=== PATIENT | female | born 1965 | race Caucasian/White ===

== ENCOUNTER 2017-08-13 12:51 | Emergency (ER) | payer BC ==
[~2017-08-13] VITALS: Ht 154.9 cm; Wt 71.0 kg
[2017-08-13 12:53] VITALS: Ht 154.9 cm; Wt 71.0 kg
[2017-08-13] MEDS ORDERED: MoRPHine SULFATE 10 MG/ML CARP/VIAL IV STA (13:01)
[2017-08-13] MEDS ORDERED: SODIUM CHLORIDE 0.9% 1000ML 1,000 ML IV STA ×2 (13:01)
[2017-08-13] MEDS ORDERED: ONDANSETRON INJ 2 MG/ML 2 ML VIAL IV STA ×2 (13:01→17:26)
[2017-08-13] MEDS ORDERED: OPTIRAY 320 IV PRN (13:15)
[2017-08-13] MEDS ORDERED: MIRT15TA3 PO (13:42)
[2017-08-13 13:43] LABS: BASO % 0.2 %; BASO ABS # 0.02 K/uL (0-0.2); COMPLETE YES; EOS % 0.6 %; HEMATOCRIT 44.1 % (37-47); IG% 0.4 %; LYMPH ABS # 0.51 K/uL (1.2-3.4); MEAN CELL VOLUME 89.3 fL (80-100); MEAN CORPUSCULAR HEMOGLOBIN 30.8 pg (25-34); MEAN CORPUSCULAR HGB CONC 34.5 g/dl (32-36); MEAN PLATELET VOLUME 10.7 fL (7.4-10.4); MONO % 5.7 %; NEUT % 87.1 %; PLATELET COUNT 186 K/uL (130-400); RED BLOOD COUNT 4.94 M/uL (4.2-5.4); WHITE BLOOD COUNT 8.44 K/uL (4.8-10.8)
[2017-08-13 14:15] LABS: BUN/CREATININE RATIO 11.2 (10-20); CALCIUM 9.2 mg/dl (8.5-10.1); CREATININE 0.78 mg/dl (0.60-1.20)
[2017-08-13 14:17] LABS: URINE APPEARANCE CLEAR (CLEAR); URINE BILIRUBIN NEG (NEG); URINE COLOR YELLOW; URINE EPITHELIAL CELL AUTO >30 /lpf (0-5); URINE NITRITE NEG (NEG); URINE SPECIFIC GRAVITY 1.015 (1.000-1.030); UROBILINOGEN NEG (NEG); ZZUR CULT IF INDIC CLEAN CATCH YES
[2017-08-13 14:18] LABS: PREG INTERNAL NEGATIVE QC NEG CLEAR BACKGROUND; PREG INTERNAL POSITIVE QC POS CONTROL LINE
[2017-08-13 14:20] LABS: POTASSIUM 4.4 mmol/L (3.5-5.1)
[2017-08-13 14:23] LABS: MANUAL MICROSCOPIC REQUIRED? NO; REVIEW REQ? NO
--- NOTE | 2017-08-13 14:35 | DIAGNOSTIC IMAGING REPORT ---
CHEST 2 VIEWS ROUTINE CLINICAL HISTORY: 51 years-old Female presenting with cough. TECHNIQUE: PA and lateral views of the chest were obtained. COMPARISON: None. FINDINGS: Cardiomediastinal silhouette normal. Lungs and pleural spaces clear. Osseous structures normal. Upper abdomen normal. IMPRESSION: 1. No acute cardiopulmonary disease. Electronically signed by: Isaias Cramer M.D. 08/13/2017 2:33 PM Dictated Date/Time: 08/13/2017 2:33 PM
--- NOTE | 2017-08-13 15:40 | DIAGNOSTIC IMAGING REPORT ---
ABD/PELVIS IV CONTRAST ONLY CLINICAL HISTORY: 51 years-old Female presenting with abd pain w/. vomiting, fever, lower abdominal pain. TECHNIQUE: Multidetector CT of the abdomen and pelvis was performed after the administration of intravenous contrast. IV contrast: 116 mL of Optiray 320. A dose lowering technique was used consistent with the principles of ALARA (as low as reasonably achievable). COMPARISON: None. CT DOSE (mGy.cm): The estimated cumulative dose is 400.89 mGy.cm. FINDINGS: Scratch Finisher topogram: Unremarkable. Lung bases: Minimal dependent changes likely atelectasis. Normal heart size. No pericardial or pleural effusion. Liver: Congenital hypoplasia of the medial segments of the left hepatic lobe. No focal lesion. Patent hepatic vasculature. Biliary: Minimal intrahepatic biliary ductal dilatation diffusely. No extra hepatic ductal dilatation. Normal gallbladder. Pancreas: Evidence of pancreas divisum. Parenchyma normal. Spleen: Normal. Splenule noted. Adrenal glands: Normal. Kidneys and ureters: Normal. No hydronephrosis. Bladder: Normal. Pelvic organs: Heterogeneity of the anterior lower uterine segment may suggest prior section. Endometrium is prominent for the patient's age. Multiple ovarian follicles or cysts are noted, the largest in the left ovary, which measures 2.4 cm in diameter and may be complex. Bowel: Normal appendix. No bowel obstruction. Peritoneal cavity: No free fluid or intraperitoneal gas. Lymph nodes: No enlarged lymph nodes in the abdomen or pelvis. Vasculature: Aorta and IVC patent and normal in caliber. Abdominal wall: Small fat-containing umbilical hernia. Musculoskeletal: Normal. IMPRESSION: 1. No acute intra-abdominal pathology. 2. Prominent follicles in the ovaries most pronounced in the left ovary. The largest follicle in the left ovary may be somewhat complex. The presence of such prominent follicles would be unexpected in the postmenopausal setting. Correlate clinically with consideration for pelvic ultrasound if the patient is postmenopausal for further evaluation. 3. Additionally, the endometrium is more prominent than expected the patient is postmenopausal. Again, pelvic ultrasound could better assess this. 4. Pancreas divisum. Electronically signed by: Isaias Cramer M.D. 08/13/2017 3:39 PM Dictated Date/Time: 08/13/2017 3:32 PM
--- NOTE | 2017-08-13 16:13 | EMERGENCY ROOM VISIT NOTE ---
History Report prepared by [place]: Tony López Under the Supervision of: Surya TorresO. First contact with patient: 12:55 Chief Complaint: ILLNESS Stated Complaint: FEVER, VOMITING, DIZZY, COUGH History of Present Illness The patient is a 51 year old female who presents to the Emergency Room with complaints of vomiting that began this morning. She had a productive cough which has been present for the past 24 hours as well. Endorses a fever of 101 F at 1000 this morning. Denies abdominal pain, diarrhea, dysuria, and changes in vision. Endorses dizziness, lightheadedness, and generalized cramping of the abdomen associated with nausea and vomiting. Of note, the patient has a surgical history of a caesarian section. The patient has an allergy to Sulfa drugs. Both her sons have been sick with similar symptoms of upper respiratory infection. They did not have any diarrhea or vomiting. No recent antibiotic use. Source of History: patient Onset: 1000 this morning Position: head, other (general) Timing: constant Associated Symptoms: + fevers (101 F), + cough (productive), + nausea, + vomiting, No abdominal pain, No diarrhea, No urinary symptoms Note: Additional Symptoms: Denies changes in vision Endorses dizziness, lightheadedness, and generalized cramping Review of Systems See HPI for pertinent positives & negatives. A total of 10 systems reviewed and were otherwise negative. Past Medical & Surgical Medical Problems: (1) Hypertension Surgical Problems: (1) S/P Family History FH: cancer Hypertension Social History Smoking Status: Never Smoker Marital Status: Housing Status: lives with family Occupation Status: other Current/Historical Medications Scheduled Levofloxacin (Levaquin), 500 MG PO DAILY Mirtazapine (Remeron), 7.5 MG PO HS Scheduled PRN Ondansetron Hcl (Zofran), 1 TAB PO Q4H PRN for Nausea Allergies Coded Allergies: Sulfa Drugs (Verified Allergy, Intermediate, LIPS SWELL, 08/13/17) Physical Exam Vital Signs Date Time Temp Pulse Resp B/P (MAP) Pulse Ox O2 Delivery O2 Flow Rate FiO2 08/13/17 18:07 110 18 142/83 97 Room Air 08/13/17 17:32 37.6 110 18 142/77 98 Room Air 08/13/17 14:46 117 18 160/90 95 Room Air 08/13/17 12:53 37.9 136 18 146/87 98 Physical Exam GENERAL: Sitting up in bed, alert, disheveled, slightly ill appearing, well nourished, no distress, non-toxic EYE EXAM: normal conjunctiva. OROPHARYNX: no exudate, no erythema, lips, buccal mucosa, and tongue normal and mucous membranes are moist NECK: supple, no nuchal rigidity, no adenopathy, non-tender, negative Brudzinski LUNGS: Clear to auscultation. Normal chest wall mechanics HEART: no murmurs, S1 normal and S2 normal, tachycardia ABDOMEN: abdomen soft, non-tender, normo-active bowel sounds, no masses, no rebound or guarding. BACK: Back is symmetrical on inspection and there is no deformity, no midline tenderness, no CVA tenderness. SKIN: no rashes and no bruising UPPER EXTREMITIES: upper extremities are grossly normal. LOWER EXTREMITIES: No pitting edema. NEURO EXAM: Normal sensorium, cranial nerves II-XII grossly intact, normal speech, no gross weakness of arms, no gross weakness of legs. Gross sensation intact. Medical Decision & Procedures ER Provider Diagnostic Interpretation: Radiology results as stated below per my review and the radiologist's interpretation: ABD/PELVIS IV CONTRAST ONLY CLINICAL HISTORY: 51 years-old Female presenting with abd pain w/. vomiting, fever, lower abdominal pain. TECHNIQUE: Multidetector CT of the abdomen and pelvis was performed after the administration of intravenous contrast. IV contrast: 116 mL of Optiray 320. A dose lowering technique was used consistent with the principles of ALARA (as low as reasonably achievable). COMPARISON: None. CT DOSE (mGy.cm): The estimated cumulative dose is 400.89 mGy.cm. FINDINGS: Production Tool Engineer topogram: Unremarkable. Lung bases: Minimal dependent changes likely atelectasis. Normal heart size. No pericardial or pleural effusion. Liver: Congenital hypoplasia of the medial segments of the left hepatic lobe. No focal lesion. Patent hepatic vasculature. Biliary: Minimal intrahepatic biliary ductal dilatation diffusely. No extra hepatic ductal dilatation. Normal gallbladder. Pancreas: Evidence of pancreas divisum. Parenchyma normal. Spleen: Normal. Splenule noted. Adrenal glands: Normal. Kidneys and ureters: Normal. No hydronephrosis. Bladder: Normal. Pelvic organs: Heterogeneity of the anterior lower uterine segment may suggest prior section. Endometrium is prominent for the patient's age. Multiple ovarian follicles or cysts are noted, the largest in the left ovary, which measures 2.4 cm in diameter and may be complex. Bowel: Normal appendix. No bowel obstruction. Peritoneal cavity: No free fluid or intraperitoneal gas. Lymph nodes: No enlarged lymph nodes in the abdomen or pelvis. Vasculature: Aorta and IVC patent and normal in caliber. Abdominal wall: Small fat-containing umbilical hernia. Musculoskeletal: Normal. IMPRESSION: 1. No acute intra-abdominal pathology. 2. Prominent follicles in the ovaries most pronounced in the left ovary. The largest follicle in the left ovary may be somewhat complex. The presence of such prominent follicles would be unexpected in the postmenopausal setting. Correlate clinically with consideration for pelvic ultrasound if the patient is postmenopausal for further evaluation. 3. Additionally, the endometrium is more prominent than expected the patient is postmenopausal. Again, pelvic ultrasound could better assess this. 4. Pancreas divisum. Electronically signed by: Isaias Cramer M.D. 08/13/2017 3:39 PM CHEST 2 VIEWS ROUTINE CLINICAL HISTORY: 51 years-old Female presenting with cough. TECHNIQUE: PA and lateral views of the chest were obtained. COMPARISON: None. FINDINGS: Cardiomediastinal silhouette normal. Lungs and pleural spaces clear. Osseous structures normal. Upper abdomen normal. IMPRESSION: 1. No acute cardiopulmonary disease. Electronically signed by: Isaias Cramer M.D. 08/13/2017 2:33 PM Laboratory Results 08/13/17 13:30 Red Blood Count 4.94, Mean Corpuscular Volume 89.3, Mean Corpuscular Hemoglobin 30.8, Mean Corpuscular Hemoglobin Concent 34.5, Mean Platelet Volume 10.7, Neutrophils (%) (Auto) 87.1, Lymphocytes (%) (Auto) 6.0, Monocytes (%) (Auto) 5.7, Eosinophils (%) (Auto) 0.6, Basophils (%) (Auto) 0.2, Neutrophils # (Auto) 7.35, Lymphocytes # (Auto) 0.51, Monocytes # (Auto) 0.48, Eosinophils # (Auto) 0.05, Basophils # (Auto) 0.02 08/13/17 13:30 Test 08/13/17 13:30 08/13/17 13:43 08/13/17 14:00 White Blood Count 8.44 K/uL (4.8-10.8) Red Blood Count 4.94 M/uL (4.2-5.4) Hemoglobin 15.2 g/dL (12.0-16.0) Hematocrit 44.1 % (37-47) Mean Corpuscular Volume 89.3 fL (80-100) Mean Corpuscular Hemoglobin 30.8 pg (25-34) Mean Corpuscular Hemoglobin Concent 34.5 g/dl (32-36) Platelet Count 186 K/uL (130-400) Mean Platelet Volume 10.7 fL (7.4-10.4) Neutrophils (%) (Auto) 87.1 % Lymphocytes (%) (Auto) 6.0 % Monocytes (%) (Auto) 5.7 % Eosinophils (%) (Auto) 0.6 % Basophils (%) (Auto) 0.2 % Neutrophils # (Auto) 7.35 K/uL (1.4-6.5) Lymphocytes # (Auto) 0.51 K/uL (1.2-3.4) Monocytes # (Auto) 0.48 K/uL (0.11-0.59) Eosinophils # (Auto) 0.05 K/uL (0-0.5) Basophils # (Auto) 0.02 K/uL (0-0.2) RDW Standard Deviation 45.0 fL (36.4-46.3) RDW Coefficient of Variation 13.7 % (11.5-14.5) Immature Granulocyte % (Auto) 0.4 % Immature Granulocyte # (Auto) 0.03 K/uL (0.00-0.02) Anion Gap 9.0 mmol/L (3-11) Est Creatinine Clear Calc Drug Dose 77.7 ml/min Estimated GFR () 102.7 Estimated GFR (Non- 88.6 BUN/Creatinine Ratio 11.2 (10-20) Calcium Level 9.2 mg/dl (8.5-10.1) Total Bilirubin 1.0 mg/dl (0.2-1) Direct Bilirubin mg/dl (0-0.2) Aspartate Amino Transf (AST/SGOT) 25 U/L (15-37) Alanine Aminotransferase (ALT/SGPT) 36 U/L (12-78) Alkaline Phosphatase 131 U/L (45-117) Total Protein 7.6 gm/dl (6.4-8.2) Albumin 3.8 gm/dl (3.4-5.0) Lipase 133 U/L (73-393) Chemistry Specimen Hemolysis Influenza Type A Antigen Neg for Influ A (NEG) Influenza Type B Antigen Neg for Influ B (NEG) Urine Color YELLOW Urine Appearance CLEAR (CLEAR) Urine pH 8.0 (4.5-7.5) Urine Specific [place] 1.015 (1.000-1.030) Urine Protein NEG (NEG) Urine Glucose (UA) NEG (NEG) Urine Ketones 2+ (NEG) Urine Occult Blood 2+ (NEG) Urine Nitrite NEG (NEG) Urine Bilirubin NEG (NEG) Urine Urobilinogen NEG (NEG) Urine Leukocyte Esterase NEG (NEG) Urine WBC (Auto) 1-5 /hpf (0-5) Urine RBC (Auto) 10-30 /hpf (0-4) Urine Hyaline Casts (Auto) 1-5 /lpf (0-5) Urine Epithelial Cells (Auto) >30 /lpf (0-5) Urine Bacteria (Auto) 1+ (NEG) Urine Test NEG (NEG) Laboratory results per my review. Medications Administered Medications (Trade) Dose Ordered Sig/Gael Route Start Time Stop Time Status Last Admin Dose Admin Sodium Chloride 1,000 ml @ 999 mls/hr Q1H1M STAT IV 08/13/17 13:01 08/13/17 14:01 [place] 08/13/17 13:30 999 MLS/HR Ondansetron HCl (Zofran Inj) 4 mg NOW STAT IV 08/13/17 13:01 08/13/17 13:06 DC 08/13/17 13:37 4 MG Morphine Sulfate (MoRPHine SULFATE INJ) 6 mg NOW STAT IV 08/13/17 13:01 08/13/17 13:06 DC 08/13/17 13:37 6 MG Sodium Chloride 1,000 ml @ 999 mls/hr Q1H1M STAT IV 08/13/17 13:01 08/13/17 14:01 [place] 08/13/17 13:30 999 MLS/HR Ondansetron HCl (Zofran Inj) 4 mg NOW STAT IV 08/13/17 17:26 08/13/17 17:27 DC 08/13/17 17:37 4 MG Sodium Chloride 500 ml @ 999 mls/hr Q31M STAT IV 08/13/17 17:27 08/13/17 17:57 DC 08/13/17 17:39 999 MLS/HR Levofloxacin (Levaquin Tab) 750 mg NOW ONCE PO 08/13/17 18:00 08/13/17 18:01 DC 08/13/17 18:05 750 MG ED Course ED COURSE: Vital signs were reviewed and showed tachycardia and febrile. The patients medical record was reviewed The above diagnostic studies were performed and reviewed. ED treatments and interventions as stated above. 1255: The patient was evaluated in room B10. A complete history and physical examination was performed. 1558: I spoke with the patient and she would like something to drink. 1648: I updated the patient and she was adamant about getting a private room. Upon reevaluation, the patient is feeling better. I discussed my findings with the patient and she understands and agrees with the treatment plan. Based on the patients age, coexisting illnesses, exam and lab findings the decision to treat as an outpatient was made. The patient remained stable while under my care. The patient appeared well at the time of discharge. Medical Decision Differential diagnosis includes etiologies such as sepsis, UTI, pneumonia, metabolic, electrolyte abnormalities, cardiac sources, intracerebral event, toxicologic, neurologic, as well as others were entertained. Patient is a 51-year-old female who presents to ER for cough associated with fevers, vomiting and diarrhea. Patient's abdominal exam is fairly benign but she does complain of pain. Family has been sick with similar symptoms. Vitals are remarkable for a tachycardia and fever. CBC all BMP, LFTs, bilirubin and lipase is unremarkable. UA was contaminated with multiple epithelial cells. was negative. Patient still gets her menstrual. But has not had any for the past [address] of abdomen and pelvis was benign with the exception of a left ovarian mass. Ultrasound was performed and shows a cyst. Patient was updated to have this followed up on within 2 months. Chest x-ray shows no infiltrate. No obvious source of infection with the exception of the obvious bronchitis and likely viral gastroenteritis. Patient was placed on Levaquin due to the viral URI and discharged with Zofran. Patient is tolerating oral liquids prior to discharge. She was feeling significantly better. I offered admission due to the mild tachycardia in combination with the nausea and vomiting. Patient declined and preferred to go home. I felt this is reasonable. Discussed with Pt concerning signs and symptoms to watch out for. Pt was instructed to follow up with their PCP and discussed with the patient their option to return to the ED at anytime for persistent or worsening symptoms. The appropriate anticipatory guidance and out-patient management, including indications for return to the emergency department, were explained at length to the patient and understood. Medication Reconcilliation Current Medication List: was personally reviewed by me Blood Pressure Screening Patient's blood pressure: Normal blood pressure Blood pressure disposition: Did not require urgent referral Impression Primary Impression: Nausea vomiting and diarrhea Additional Impressions: Abdominal pain Bronchitis Ovarian cyst Scribe Attestation The scribe's documentation has been prepared under my direction and personally reviewed by me in its entirety. I confirm that the note above accurately reflects all work, treatment, procedures, and medical decision making performed by me. Departure Information Prescriptions Ondansetron Hcl (ZOFRAN) 4 Mg Tab 1 TAB PO Q4H Y for Nausea for 3 Days, #20 TAB 0 Refills Prov: You Duque, DO 08/13/17 Levofloxacin (Levaquin) 500 Mg Tab 500 MG PO DAILY for 6 Days, #6 TAB Prov: You Duque, DO 08/13/17 Referrals No Doctor, Assigned (PCP) Patient Instructions My [facility] Problem Qualifiers Additional Impressions: Abdominal pain Abdominal location: unspecified location Qualified Codes: R10.9 - Unspecified abdominal pain Ovarian cyst Laterality: left Qualified Codes: N83.202 - Unspecified ovarian cyst, left side
[2017-08-13] MEDS ORDERED: SODIUM CHLORIDE 0.9% 500ML 500 ML IV STA (17:27)
--- NOTE | 2017-08-13 17:28 | DIAGNOSTIC IMAGING REPORT ---
PELVIC ULTRASOUND CLINICAL HISTORY: Fever and vomiting. Ovarian abnormality on CT. COMPARISON STUDY: CT of the abdomen and pelvis August 13, 2017. TECHNIQUE: Transabdominal and transvaginal sonography of the pelvis was performed. FINDINGS: The uterus measures 12.3 x 3.7 x 5.4 cm. Endometrium measures 7 mm in thickness. Several Nabothian cysts within the cervix are noted. The right ovary was not visualized due to overlying bowel gas. The left ovary measures 4.1 x 3.9 x 3 cm. A 2.7 cm left ovarian cyst thick lesion is noted. This contains no mural nodularity. There are a few smaller follicles within the left ovary. Color flow is identified within the left ovary. There was no free fluid. IMPRESSION: 1. 2.7 cm left ovarian lesion which suggests a cyst. This is likely benign. However, a follow-up pelvic ultrasound 6 weeks to ensure resolution is recommended. 2. Endometrial thickness of 7 mm. This could be correlated with menopausal status although is within normal limits if this patient is premenopausal. 3. Nonvisualization of the right ovary due to overlying bowel gas. Electronically signed by: Matthew Thomas M.D. 08/13/2017 5:27 PM Dictated Date/Time: 08/13/2017 5:22 PM
[2017-08-13 17:32] VITALS: TEMP 37.6
[2017-08-13] MEDS ORDERED: ONDA4TAB65 PO (17:58)
[2017-08-13] MEDS ORDERED: LEVO-366 PO (17:58)
[2017-08-13] MEDS ORDERED: LEVOFLOXACIN 250 MG TAB PO ONE (18:00)
[2017-08-13] MEDS ORDERED: ONDANSETRON HOME PACK 4MG OD TAB PO ONE (18:00)
[2017-08-13 18:07] VITALS: BP 142/83; PULSE 110; O2SAT 97
--- NOTE | 2017-08-15 12:09 | Pharmacy Progress Note ---
ED Pharmacist Culture FollowUp Date of Service: Aug 15, 2017. Patient was sent home with a prescription for levofloxacin 500mg QD x 6 days, which should cover the enterococcus growing from the patient's urine culture.
== END 2017-08-13 18:26 | disposition home or self-care (01) ==
LOC: C.EDB 12:52
DX: R11.2 Nausea with vomiting, unspecified (principal); R19.7 Diarrhea, unspecified; R10.9 Unspecified abdominal pain; J40 Bronchitis, not specified as acute or chronic; N83.202 Unspecified ovarian cyst, left side; I10 Essential (primary) hypertension; Z98.891 History of uterine scar from previous surgery; Z82.49 Family history of ischemic heart disease and other diseases of the circulatory system

== ENCOUNTER 2024-02-03 20:46 | Observation (INO) ==
[2024-02-03] MEDS: SODIUM CHLORIDE 0.9% 50 ML BAG IV STA (21:11)
[2024-02-03 21:27] LABS: Appearance Urine Turbid (Clear); Bacteria Urine Automated 4+ (None Seen); Bilirubin Urine Negative (Negative); Blood Urine 3+ (Negative); Color Urine Yellow; Glucose Urine UA Negative (Negative); Ketones Urine Negative (Negative); Leukocyte Esterase Urine Trace (Negative); Nitrite Urine Positive (Negative); Protein Urine Trace (Negative); Urobilinogen Urine Negative (Negative); WBC Urine Automated 21-50 /hpf (0-5); pH Urine 5.5 (4.5-7.5)
[2024-02-03 21:29] LABS: Basophils # (auto) 0.04 K/uL (0.00-0.20); Basophils % (auto) 0.4 %; Eosinophils # (auto) 0.04 K/uL (0.00-0.50); Eosinophils % (auto) 0.4 %; Hematocrit (blood only) 51.5 % (37.0-47.0); Hemoglobin 17.4 g/dl (12.0-16.0); Immature Granulocytes # (auto) 0.04 K/uL (0.01-0.20); Immature Granulocytes % (auto) 0.4 %; Lymphocytes # (auto) 1.58 K/uL (1.20-3.40); Lymphocytes % (auto) 14.2 %; Mean Corpuscular Hemoglobin 29.7 pg (25.0-34.0); Mean Corpuscular Hgb Conc 33.8 g/dL (32.0-36.0); Mean Platelet Volume 10.7 fL (9.4-12.4); Monocytes # (auto) 0.54 K/uL (0.11-0.59); Monocytes % (auto) 4.9 %; Neutrophils # (auto) 8.86 K/uL (1.40-6.50); Neutrophils % (auto) 79.7 %; Platelet Count 224 K/uL (130-400); RDW Coefficient of Variation 13.1 % (11.5-14.5); RDW Standard Deviation 42.4 fL (36.4-46.3); Red Blood Count 5.85 M/uL (4.20-5.40)
[2024-02-03 21:43] LABS: Albumin Globulin Ratio 1.4 (0.9-2); Albumin Level 4.6 gm/dl (3.4-5.0); BUN Creatinine Ratio 13.6 (10-20); Bilirubin,Total 1.1 mg/dl (0.2-1.0); Calcium 10.1 mg/dl (8.6-10.3); Est GFR (African American) 84.5 ml/min; Est GFR (Non-African American) 72.9 ml/min; Globulin 3.2 gm/dl (2.5-4.0); Potassium 4.1 mmol/L (3.5-5.1); Total Protein 7.8 gm/dl (6.0-8.3)
[2024-02-03 22:10] LABS: Adenovirus PCR Not Detected (NotDetected); Bordetella parapertussis PCR Not Detected (NotDetected); Bordetella pertussis PCR Not Detected (NotDetected); Chlamydia pneumoniae PCR Not Detected (NotDetected); Coronavirus 229E PCR Not Detected (NotDetected); Coronavirus CoV-2 (COVID19)PCR Not Detected (NotDetected); Coronavirus HKU1 PCR Not Detected (NotDetected); Coronavirus NL63 PCR Not Detected (NotDetected); Coronavirus OC43PCR Not Detected (NotDetected); Human Metapneumovirus PCR Not Detected (NotDetected); Influenza A PCR Not Detected (NotDetected); Influenza B PCR Not Detected (NotDetected); Mycoplasma pneumoniae PCR Not Detected (NotDetected); Parainfluenza Virus 1 PCR Not Detected (NotDetected); Parainfluenza Virus 2 PCR Not Detected (NotDetected); Parainfluenza Virus 3 PCR Not Detected (NotDetected); Parainfluenza Virus 4 PCR Not Detected (NotDetected); Respiratory Syncytial VirusPCR Not Detected (NotDetected); Rhinovirus/Enterovirus PCR Not Detected (NotDetected)
[2024-02-03] MEDS: ONDANSETRON INJ 2 MG/ML 2 ML VIAL IV STA (23:05)
[2024-02-03] MEDS: MoRPHine SULFATE 4 MG/ML 1 ML CARP\\VIAL IV PRN (23:05)
[2024-02-03] MEDS: SODIUM CHLORIDE 0.9% 1,000 ML IV SCH (23:06)
[2024-02-03] MEDS: cefTRIAXone SODIUM 2,000 MG/50 ML BAG IV STA (23:06)
[2024-02-03] MEDS: OPTIRAY 320 100ml IV ONE (23:23)
--- NOTE | 2024-02-04 01:02 | CT Scan Report ---
Exam(s): CT ABDOMEN + PELVIS With Contrast IV Amt: 93 ML OPTIRAY 320 EXAM: CT Abdomen and Pelvis With Intravenous Contrast CLINICAL HISTORY: Reason for exam: abd pain, v/d. TECHNIQUE: Axial computed tomography images of the abdomen and pelvis with intravenous contrast. CTDI is 19.94 mGy and DLP is 1000.3 mGy-cm. Automated exposure control was utilized for the study. A dose lowering technique was utilized adhering to the principles of ALARA. CONTRAST: Patient received 93 ML OPTIRAY 320 of IV contrast COMPARISON: August 13, 2017 FINDINGS: Lung bases: Unremarkable. No mass. No consolidation. ABDOMEN: Liver: Unremarkable. No mass. Gallbladder and bile ducts: Unremarkable. No calcified stones. No ductal dilation. Pancreas: Unremarkable. No mass. No ductal dilation. Spleen: Unremarkable. No splenomegaly. Adrenals: Unremarkable. No mass. Kidneys and ureters: Unremarkable. No solid mass. No hydronephrosis. Stomach and bowel: See below. PELVIS: Appendix: The appendix is upper normal in diameter but noninflamed. Bowel loops are nondilated. There is diffuse wall thickening throughout the transverse and left colon consistent with colitis. No pneumoperitoneum, free fluid, or abscess is seen. Bladder: Unremarkable. No mass. Reproductive: There is a 7.4 cm slightly complex cystic structure in the left adnexa, presumably ovarian. ABDOMEN and PELVIS: Intraperitoneal space: See above. Bones/joints: Mild multilevel degenerative changes throughout the spine. No acute fracture or subluxation is seen. Soft tissues: Unremarkable. Vasculature: Unremarkable. No abdominal aortic aneurysm. Lymph nodes: Unremarkable. No enlarged lymph nodes. IMPRESSION: 1. The appendix is upper normal in diameter but noninflamed. Bowel loops are nondilated. There is diffuse wall thickening throughout the transverse and left colon consistent with colitis. No pneumoperitoneum, free fluid, or abscess is seen. 2. There is a 7.4 cm slightly complex cystic structure in the left adnexa, presumably ovarian. Consider ultrasound for further characterization and follow-up purposes. Electronically signed by: Perico Bryant MD 02/04/24 01:01 AM
--- NOTE | 2024-02-04 01:37 | Emergency Department Note ---
Impression & Plan Colitis, Nausea, vomiting, and diarrhea ED Provider Note NAME: MARISELA MORTON AGE: 58 SEX: Female INFORMANT: Patient ED PROVIDER(S): Milind Jacobs MD CHIEF COMPLAINT: Fever, vomiting and diarrhea PLAN: Disposition: Admitted Outpatient prescription management: none Referral: None MEDICAL DECISION MAKING: Patient presented due to vomiting and diarrhea. She was tachycardic. Workup was initiated. She had a normal lactate. Her CBC showed a leukocytosis. Chemistry was unremarkable. Stool testing was ordered but patient did not provide a specimen. Urinalysis was concerning for infection. Patient was treated with IV Rocephin. CT imaging reveals a colitis. After receiving IV narcotic analgesia and Zofran the patient was feeling better. She still had discomfort. She did receive 2.5 L of saline. Further management in the hospital was felt to be appropriate patient was in agreement. [facility], Dr. Felipe. Patient was evaluated in the ER and admitted for further management Care/management discussed with: floral manager Level of care consideration(s): After review of the information above and other included data, I feel the patient requires escalation of care to admission Triage Nursing notes: reviewed and agree them. Vital Signs: reviewed and remarkable for tachycardia Additional History obtained from: none Chronic Medical/Social Conditions affecting care: none Prior/ Outside/ External records reviewed: none Differential Diagnosis: Etiologies such as gastroenteritis, food borne illness, infections, appendicitis, diverticulitis, inflammatory bowel disease, GI bleed, biliary pathology, as well as others were entertained. Diagnostics, independently interpreted by me: ECG: Twelve-lead ECG reveals sinus tachycardia 134 bpm. Inferior T wave inversion. Nonspecific ST. Cardiac Monitoring: Cardiac monitoring ordered by me: The patient was placed on continuous cardiac monitoring and observed. It revealed a normal sinus rhythm at 83 beats per minute without ectopy or evidence of dysrhythmia. Medical decision rules: none Imaging studies: CT scan of the abdomen pelvis reveals colitis. HPI: 58 year old Female arrives for evaluation of fever, vomiting and diarrhea. This started yesterday and is persisting. The patient also notes the following associated symptoms, feeling dehydrated and generalized abdominal pain. The patient has found no relieving factors. Current pain is rated as 8/10. Patient denies any recent antibiotic use. No history of the same. She did travel to [facility] over 2 weeks ago and had no illness there or after returning home. Pt denies LOC, headache, cough sore throat, runny nose, chills, diaphoresis, visual changes, neck pain, chest pain, breathing difficulties, back pain, melena, hematochezia, urinary symptoms, numbness, weakness, lymphadenopathy, rash, or other complaints. . PAST MEDICAL HISTORY: See Below, PAST SURGICAL HISTORY: See Below, SOCIAL HISTORY: See Below, non-smoker HOME MEDICATIONS: See Below ALLERGIES: See Below VITALS: See Below PHYSICAL EXAMINATION: GENERAL: Awake, alert, uncomfortable-appearing, in no distress HENT: Normocephalic, atraumatic. Oropharynx unremarkable. EYES: Normal conjunctiva. Sclera non-icteric. NECK: Inspection normal. Non-tender. Supple. No nuchal rigidity. FROM. No masses. RESPIRATORY: Clear to auscultation. No wheezes. No rales. Normal respiratory effort. CARDIAC: Tachycardic rate. Normal rhythm. No murmurs. No rubs. Extremities warm and well perfused. Pulses equal. No JVD. GI: Soft, non-distended. Upper and left-sided tenderness to palpation. No rebound or guarding. No masses. RECTAL: Deferred. MUSCULOSKELETAL: Atraumatic. Chest examination reveals no tenderness. The back is symmetrical on inspection without obvious abnormality. There is mild right CVA tenderness to palpation. No joint edema. LOWER EXTREMITIES: Calves are equal size bilaterally and non-tender. No edema. No discoloration. NEURO: Normal sensorium. No sensory or motor deficits noted. SKIN: No rash or jaundice noted. PROCEDURES: none CRITICAL CARE: none OBSERVATION NOTE: none Past Med/Surg History Problem List Nausea, vomiting, and diarrhea (Acute) Colitis (Acute) Hypertension (Chronic) Social History Smoking Status: Never smoker Second Hand Exposure: No; Tobacco Cessation Education Requested by Patient: No Hx Alcohol Use: No Hx Substance Use: No Preferred Language: Bengali Communication Ability: Effective Angiography Technologist Required: No Beliefs That Will Affect Care: None Current Living Situation: Spouse Other Information That Helps Us Care for You: No Feels Safe at Home: Yes Safety Concerns: Feels Safe At This Time Assistive Devices: None Allergies Allergies Allergy/AdvReac Type Severity Reaction Status Date / Time Sulfa (Sulfonamide Allergy Intermediate LIPS SWELL Verified 02/04/24 01:55 Antibiotics) Home Meds Home Medications Medication Instructions Recorded Confirmed No Known Home Medications 02/04/24 02/04/24 Results & Data (ED) Vital Signs Vital Signs - 24 hr 02/04/24 02:51 02/04/24 03:45 02/04/24 03:51 Pulse Rate 83 112 H 75 Pulse Rate from SpO2 Sensor 82 107 H 75 Respiratory Rate 19 22 14 Blood Pressure 142/90 H Blood Pressure Mean 107 Pulse Oximetry 95 95 93 Oxygen Delivery Method Room Air 02/04/24 04:06 02/04/24 04:12 02/04/24 04:30 Pulse Rate 72 74 75 Pulse Rate from SpO2 Sensor 70 75 75 Respiratory Rate 16 21 22 Blood Pressure 155/90 H Blood Pressure Mean 111 Pulse Oximetry 95 96 97 Oxygen Delivery Method Room Air 02/04/24 04:45 02/04/24 04:51 02/04/24 05:03 Pulse Rate 79 76 97 H Pulse Rate from SpO2 Sensor 82 76 99 H Respiratory Rate 16 16 10 L Blood Pressure 152/86 H Blood Pressure Mean 108 Pulse Oximetry 95 96 98 Oxygen Delivery Method Room Air 02/04/24 05:21 Pulse Rate 93 H Pulse Rate from SpO2 Sensor 94 H Respiratory Rate 15 Blood Pressure Blood Pressure Mean Pulse Oximetry 95 Oxygen Delivery Method Laboratory Data 02/04/24 08:51 02/04/24 08:51 Lab Results 02/03/24 02/03/24 Range/Units 21:08 23:06 WBC 11.10 H (4.8-10.8) K/ul RBC 5.85 H (4.20-5.40) M/uL Hgb 17.4 H (12.0-16.0) g/dl Hct 51.5 H (37.0-47.0) % MCV 88.0 (80.0-100.0) fL MCH 29.7 (25.0-34.0) pg MCHC 33.8 (32.0-36.0) g/dL RDW Std Deviation 42.4 (36.4-46.3) fL RDW Coeff of Jimmy 13.1 (11.5-14.5) % Plt Count 224 (130-400) K/uL MPV 10.7 (9.4-12.4) fL Immature Gran % (Auto) 0.4 % Neut % (Auto) 79.7 % Lymph % (Auto) 14.2 % Worth % (Auto) 4.9 % Eos % (Auto) 0.4 % Baso % (Auto) 0.4 % Neut # (Auto) 8.86 H (1.40-6.50) K/uL Lymph # (Auto) 1.58 (1.20-3.40) K/uL Worth # (Auto) 0.54 (0.11-0.59) K/uL Eos # (Auto) 0.04 (0.00-0.50) K/uL Baso # (Auto) 0.04 (0.00-0.20) K/uL Immature Gran # (Auto) 0.04 (0.01-0.20) K/uL Sodium 138 (136-145) mmol/L Potassium 4.1 (3.5-5.1) mmol/L Chloride 105 (98-107) mmol/L Carbon Dioxide 24 (21-32) mmol/L Anion Gap 9 (3-11) BUN 12 (6-23) mg/dl Creatinine 0.88 (0.6-1.2) mg/dl Est Cr Clr Drug Dosing 66.0 ml/min Est GFR ( Amer) 84.5 ml/min Est GFR (Non-Af Amer) 72.9 ml/min BUN/Creatinine Ratio 13.6 (10-20) Glucose 126 H (70-99(Fasting)) mg/dl Lactate 1.8 (0.4-2.0) mmol/L Calcium 10.1 (8.6-10.3) mg/dl Total Bilirubin 1.1 H (0.2-1.0) mg/dl AST 17 (13-39) U/L ALT 21 (7-52) U/L Alkaline Phosphatase 115 H (34-104) U/L Total Protein 7.8 (6.0-8.3) gm/dl Albumin 4.6 (3.4-5.0) gm/dl Globulin 3.2 (2.5-4.0) gm/dl Albumin/Globulin Ratio 1.4 (0.9-2) Urine Color Yellow Urine Appearance Turbid A (Clear) Urine pH 5.5 (4.5-7.5) Ur Specific [place] 1.020 (1.000-1.030) Urine Protein Trace H (Negative) Urine Glucose (UA) Negative (Negative) Urine Ketones Negative (Negative) Urine Blood 3+ H (Negative) Urine Nitrite Positive A (Negative) Urine Bilirubin Negative (Negative) Urine Urobilinogen Negative (Negative) Ur Leukocyte Esterase Trace H (Negative) Urine WBC (Auto) 21-50 H (0-5) /hpf Urine RBC (Auto) 11-20 H (0-2) /hpf U Hyaline Cast (Auto) 11-20 H (0-2) /lpf U Epithel Cells (Auto) 11-20 H (0-2) /hpf Urine Bacteria (Auto) 4+ H (None Seen) Adenovirus (PCR) Not Detected (NotDetected) B. pertussis DNA (PCR) Not Detected (NotDetected) B.parapertussis DNA PCR Not Detected (NotDetected) C. pneumoniae DNA (PCR) Not Detected (NotDetected) Coronavirus OC43 (PCR) Not Detected (NotDetected) Coronavirus HKU1 (PCR) Not Detected (NotDetected) Coronavirus 229E (PCR) Not Detected (NotDetected) SARS-CoV-2 (PCR) Not Detected (NotDetected) Coronavirus NL63 (PCR) Not Detected (NotDetected) Human Metapneumovir PCR Not Detected (NotDetected) Influenza Type A (PCR) Not Detected (NotDetected) Influenza Type B (PCR) Not Detected (NotDetected) M. pneumoniae (PCR) Not Detected (NotDetected) Parainfluenza 1 (PCR) Not Detected (NotDetected) Parainfluenza 2 (PCR) Not Detected (NotDetected) Parainfluenza 3 (PCR) Not Detected (NotDetected) Parainfluenza 4 (PCR) Not Detected (NotDetected) RSV (PCR) Not Detected (NotDetected) Entero/Rhino (PCR) Not Detected (NotDetected) Administered Medications Enoxaparin Sodium (Enoxaparin Inj 40 Mg/0.4 Ml Syr) 40 mg SQ DAILY MARIBELL Stop: 03/05/24 08:59 Last Admin: 02/04/24 08:31 Dose: 40 mg Documented By: ALEXA Hydromorphone HCl (Hydromorphone Inj 0.5 Mg/0.5 Ml Syr) 0.25 mg IV Q4H PRN PRN Reason: Mod-Sev Pain (Scale 4-10) Stop: 02/18/24 07:59 Last Admin: 02/04/24 15:30 Dose: 0.25 mg Documented By: MARK Dextrose/Sodium Chloride (D5w And 1/2nss) 1,000 mls @ 125 mls/hr IV .Q8H MARIBELL Stop: 03/05/24 07:59 Last Admin: 02/04/24 23:41 Dose: 125 mls/hr Documented By: Infusion: 02/04/24 23:41 Dose: Infused Documented By: Admin: 02/04/24 16:12 Dose: 125 mls/hr Documented By: Infusion: 02/04/24 16:11 Dose: Infused Documented By: Admin: 02/04/24 08:31 Dose: 125 mls/hr Documented By: ALEXA Acetaminophen (Ofirmev) 1,000 mg in 100 mls @ 400 mls/hr IV Q8H PRN PRN Reason: Pain or Fever Stop: 02/07/24 07:59 Last Infusion: 02/04/24 20:11 Dose: Infused Documented By: Admin: 02/04/24 19:41 Dose: 400 mls/hr Documented By: Infusion: 02/04/24 09:01 Dose: Infused Documented By: Admin: 02/04/24 08:33 Dose: 400 mls/hr Documented By: ALEXA Metronidazole (Flagyl) 500 mg in 100 mls @ 100 mls/hr IV Q8H MARIBELL; Protocol Stop: 02/14/24 07:59 Last Infusion: 02/05/24 00:42 Dose: Infused Documented By: Admin: 02/04/24 23:38 Dose: 100 mls/hr Documented By: Infusion: 02/04/24 17:59 Dose: Infused Documented By: Admin: 02/04/24 16:37 Dose: 100 mls/hr Documented By: Infusion: 02/04/24 08:33 Dose: Infused Documented By: Admin: 02/04/24 08:31 Dose: 100 mls/hr Documented By: ALEXA Ciprofloxacin (Cipro / D5w) 400 mg in 200 mls @ 100 mls/hr IV Q12H MARIBELL; Protocol Stop: 02/14/24 08:59 Last Infusion: 02/04/24 22:19 Dose: Infused Documented By: Admin: 02/04/24 20:11 Dose: 100 mls/hr Documented By: Infusion: 02/04/24 12:30 Dose: Infused Documented By: Admin: 02/04/24 10:21 Dose: 100 mls/hr Documented By: ALEXA Ondansetron HCl (Ondansetron Inj 2 Mg/Ml 2 Ml Vial) 4 mg IV Q6H PRN PRN Reason: Nausea Stop: 03/05/24 07:59 Last Admin: 02/04/24 10:47 Dose: 4 mg Documented By: ALEXA Discontinued Medications Ceftriaxone Sodium (Rocephin) 2,000 mg in 50 mls @ 100 mls/hr IV NOW STA Stop: 02/03/24 23:17 Last Infusion: 02/03/24 23:54 Dose: Infused Documented By: Admin: 02/03/24 23:06 Dose: 100 mls/hr Documented By: OLI Sodium Chloride (Nss) 1,000 mls @ 999 mls/hr IV .Q1H1M MARIBELL Stop: 02/04/24 01:00 Last Infusion: 02/04/24 01:22 Dose: Infused Documented By: Admin: 02/03/24 23:11 Dose: 999 mls/hr Documented By: Infusion: 02/03/24 23:11 Dose: Infused Documented By: Admin: 02/03/24 23:06 Dose: 999 mls/hr Documented By: OLI Cefepime HCl 2,000 mg/ Syringe 20 mls @ 5 mls/min IV Q12H MARIBELL; Protocol Stop: 02/14/24 07:59 Last Admin: 02/04/24 08:57 Dose: Not Given Documented By: ALEXA Promethazine HCl 12.5 mg/ (Sodium Chloride) 50.5 mls @ 202 mls/hr IV NOW STA Stop: 02/04/24 15:31 Last Admin: 02/04/24 15:30 Dose: Not Given Documented By: MARK Ioversol (Optiray 320 100ml) 100 ml IV ONCE ONE Stop: 02/03/24 23:23 Last Admin: 02/03/24 23:23 Dose: 93 ml Documented By: JOSE Morphine Sulfate (Morphine Sulfate 4 Mg/Ml 1 Ml Carp\Vial) 4 mg IV Q15M PRN PRN Reason: Pain Stop: 02/17/24 22:47 Last Admin: 02/03/24 23:05 Dose: 4 mg Documented By: OLI Ondansetron HCl (Ondansetron Inj 2 Mg/Ml 2 Ml Vial) 4 mg IV NOW STA Stop: 02/03/24 22:49 Last Admin: 02/03/24 23:05 Dose: 4 mg Documented By: OLI Promethazine HCl (Promethazine 12.5 Mg/50.5 Ml Nss) Confirm Administered Dose 12.5 mg IV .STK-MED ONE Stop: 02/04/24 15:28 Last Admin: 02/04/24 15:30 Dose: 12.5 mg Documented By: MARK Sodium Chloride (Sodium Chloride 0.9% 50 Ml Bag) 500 ml IV NOW STA Stop: 02/03/24 21:07 Last Admin: 02/03/24 21:11 Dose: 500 ml Documented By: ARIK Imaging Data Radiologist's Impression: Abdomen/Pelvis CT 02/03/24 22:48 Exam(s): CT ABDOMEN + PELVIS With Contrast IV Amt: 93 ML OPTIRAY 320 EXAM: CT Abdomen and Pelvis With Intravenous Contrast CLINICAL HISTORY: Reason for exam: abd pain, v/d. TECHNIQUE: Axial computed tomography images of the abdomen and pelvis with intravenous contrast. CTDI is 19.94 mGy and DLP is 1000.3 mGy-cm. Automated exposure control was utilized for the study. A dose lowering technique was utilized adhering to the principles of ALARA. CONTRAST: Patient received 93 ML OPTIRAY 320 of IV contrast COMPARISON: August 13, 2017 FINDINGS: Lung bases: Unremarkable. No mass. No consolidation. ABDOMEN: Liver: Unremarkable. No mass. Gallbladder and bile ducts: Unremarkable. No calcified stones. No ductal dilation. Pancreas: Unremarkable. No mass. No ductal dilation. Spleen: Unremarkable. No splenomegaly. Adrenals: Unremarkable. No mass. Kidneys and ureters: Unremarkable. No solid mass. No hydronephrosis. Stomach and bowel: See below. PELVIS: Appendix: The appendix is upper normal in diameter but noninflamed. Bowel loops are nondilated. There is diffuse wall thickening throughout the transverse and left colon consistent with colitis. No pneumoperitoneum, free fluid, or abscess is seen. Bladder: Unremarkable. No mass. Reproductive: There is a 7.4 cm slightly complex cystic structure in the left adnexa, presumably ovarian. ABDOMEN and PELVIS: Intraperitoneal space: See above. Bones/joints: Mild multilevel degenerative changes throughout the spine. No acute fracture or subluxation is seen. Soft tissues: Unremarkable. Vasculature: Unremarkable. No abdominal aortic aneurysm. Lymph nodes: Unremarkable. No enlarged lymph nodes. IMPRESSION: 1. The appendix is upper normal in diameter but noninflamed. Bowel loops are nondilated. There is diffuse wall thickening throughout the transverse and left colon consistent with colitis. No pneumoperitoneum, free fluid, or abscess is seen. 2. There is a 7.4 cm slightly complex cystic structure in the left adnexa, presumably ovarian. Consider ultrasound for further characterization and follow-up purposes. Electronically signed by: Perico Bryant MD 02/04/24 01:01 AM Discharge Plan Visit Data Chief Complaint: Fever Stated Complaint: VOMIT, FEVER ED Provider: Milind Jacobs Discharge Problem: Colitis, Nausea, vomiting, and diarrhea Patient Disposition: Admitted As Inpatient Discharge Instructions Interventions: ED Discharge Assessment Last Done: 02/04/24 08:00
--- NOTE | 2024-02-04 05:34 | History & Physical Report ---
Date of Service February 04, 2024 Assessment & Plan (1) Colitis: Plan: 58-year-old female with past medical history significant for depression with anxiety presents with nausea, vomiting, diarrhea and abdominal pain since last Saturday. Patient states she had multiple episodes of diarrhea. Has nausea and vomitings whenever she is eating.. Denies any bloody stools or black stools. Stools are watery. No foul-smelling stools. Has abdominal cramps. Also having fevers. Whole body aches. Feeling weak. Denies blurred vision Or double vision. No runny nose or sore throat. No cough. No chest pain or shortness of breath. Hemodynamics are okay. No recent use of antibiotics. CT scan showing colitis. Colitis nausea, vomiting and diarrhea could not collect stool sample yet will follow stool studies and stool for C. difficile no recent use of antibiotics lactic acid okay CT abdomen pelvis showing diffuse wall thickening throughout the transverse and left colon consistent with colitis. Will place on clears, IV fluids, IV pain meds as needed, IV antiemetics as needed empiric IV cefepime and IV Flagyl GI consult in a.m. for further recommendations UTI present cefepime will follow cultures complex 7.4 cm cystic structure in the left adnexa presumably ovarian will get ultrasound when patient is more stable DVT prophylaxis Lovenox disposition medical floor History of Present Illness Chief Complaint: nausea ,vomiting, diarrhea and abdominal pain Primary Care Provider: NO PCP 58-year-old female with past medical history significant for depression with anxiety presents with nausea, vomiting, diarrhea and abdominal pain since last Saturday. Patient states she had multiple episodes of diarrhea. Has nausea and vomitings whenever she is eating.. Denies any bloody stools or black stools. Stools are watery. No foul-smelling stools. Has abdominal cramps. Also having fevers. Whole body aches. Feeling weak. Denies blurred vision Or double vision. No runny nose or sore throat. No cough. No chest pain or shortness of breath. Hemodynamics are okay. No recent use of antibiotics. Past medical history. As mentioned above past surgical history. . Social history. . No smoking. Alcohol occasional. No drug use. Family history. Maternal grandmother had breast cancer later in life. Father had cancer. Allergies Allergy/AdvReac Type Severity Reaction Status Date / Time Sulfa (Sulfonamide Allergy Intermediate LIPS SWELL Verified 02/04/24 01:55 Antibiotics) Home Medications Medication Instructions Recorded Confirmed Type No Known Home Medications 02/04/24 02/04/24 History Past Med/Surg History Problem List (Updated 02/04/24 @ 01:37 by Milind Jacobs MD) Nausea, vomiting, and diarrhea (Acute) Colitis (Acute) Hypertension (Chronic) Social History Smoking Status: Never smoker Second Hand Exposure: No; Tobacco Cessation Education Requested by Patient: No Hx Alcohol Use: No Hx Substance Use: No Preferred Language: Tajik Communication Ability: Effective 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 ENT- oropharynx clear Neck- supple, no JVD. Lungs- clear to auscultation no wheezing or crackles. Heart- regular rate and rhythm; no murmur, no gallop. Abdomen- normal bowel sounds, soft, diffuse tender no distension. Extremities- no pretibial edema, no erythema seen. Neuro- alert, oriented PERRL, no facial palsy; no dysarthria; moves extremities. Results & Data Results & Data Vital Signs (Past 12 Hours) Vital Signs Temp Pulse Pulse Resp BP BP Pulse Ox 02/04/24 04:06 72 16 155/90 H 95 02/04/24 03:51 75 14 93 02/04/24 03:45 112 H 22 95 02/04/24 02:51 83 19 142/90 H 95 02/04/24 02:43 78 14 140/88 97 02/04/24 02:42 88 16 95 02/04/24 02:39 85 15 95 02/04/24 02:36 86 02/04/24 02:24 95 02/04/24 01:27 78 14 140/88 97 02/04/24 01:24 86 16 140/88 98 02/04/24 01:18 82 13 97 02/04/24 01:09 81 16 94 06/11/24 00:50 83 16 93 02/04/24 00:35 83 14 95 02/04/24 00:29 86 16 138/85 96 02/04/24 00:23 85 17 95 02/04/24 00:11 88 15 95 02/03/24 23:56 93 H 14 97 02/03/24 23:47 94 H 12 95 02/03/24 23:44 97 H 14 97 02/03/24 23:33 97 H 13 94 02/03/24 23:00 104 H 16 161/93 H 98 02/03/24 22:57 107 H 18 99 02/03/24 22:49 107 H 02/03/24 22:24 37.3 C 16 128/77 96 02/03/24 20:53 36.9 C 133 H 19 141/102 H 97 O2 Del Method 02/04/24 04:06 Room Air 02/04/24 03:51 02/04/24 03:45 02/04/24 02:51 Room Air 02/04/24 02:43 Room Air 02/04/24 02:42 02/04/24 02:39 02/04/24 02:36 02/04/24 02:24 02/04/24 01:27 Room Air 02/04/24 01:24 Room Air 02/04/24 01:18 02/04/24 01:09 02/04/24 00:50 02/04/24 00:35 02/04/24 00:29 Room Air 02/04/24 00:23 02/04/24 00:11 02/03/24 23:56 02/03/24 23:47 02/03/24 23:44 02/03/24 23:33 02/03/24 23:00 Room Air 02/03/24 22:57 02/03/24 22:49 02/03/24 22:24 Room Air 02/03/24 20:53 Room Air Diagnostic Findings Laboratory Results WBC 11.10 K/ul (4.8-10.8) H 02/03/24 21:08 RBC 5.85 M/uL (4.20-5.40) H 02/03/24 21:08 Hgb 17.4 g/dl (12.0-16.0) H 02/03/24 21:08 Hct 51.5 % (37.0-47.0) H 02/03/24 21:08 MCV 88.0 fL (80.0-100.0) 02/03/24 21:08 MCH 29.7 pg (25.0-34.0) 02/03/24 21:08 MCHC 33.8 g/dL (32.0-36.0) 02/03/24 21:08 RDW Std Deviation 42.4 fL (36.4-46.3) 02/03/24 21:08 RDW Coeff of Jimmy 13.1 % (11.5-14.5) 02/03/24 21:08 Plt Count 224 K/uL (130-400) 02/03/24 21:08 MPV 10.7 fL (9.4-12.4) 02/03/24 21:08 Immature Gran % (Auto) 0.4 % 02/03/24 21:08 Neut % (Auto) 79.7 % 02/03/24 21:08 Lymph % (Auto) 14.2 % 02/03/24 21:08 [place] % (Auto) 4.9 % 02/03/24 21:08 Eos % (Auto) 0.4 % 02/03/24 21:08 Baso % (Auto) 0.4 % 02/03/24 21:08 Neut # (Auto) 8.86 K/uL (1.40-6.50) H 02/03/24 21:08 Lymph # (Auto) 1.58 K/uL (1.20-3.40) 02/03/24 21:08 [place] # (Auto) 0.54 K/uL (0.11-0.59) 02/03/24 21:08 Eos # (Auto) 0.04 K/uL (0.00-0.50) 02/03/24 21:08 Baso # (Auto) 0.04 K/uL (0.00-0.20) 02/03/24 21:08 Immature Gran # (Auto) 0.04 K/uL (0.01-0.20) 02/03/24 21:08 Sodium 138 mmol/L (136-145) 02/03/24 21:08 Potassium 4.1 mmol/L (3.5-5.1) 02/03/24 21:08 Chloride 105 mmol/L (98-107) 02/03/24 21:08 Carbon Dioxide 24 mmol/L (21-32) 02/03/24 21:08 Anion Gap 9 (3-11) 02/03/24 21:08 BUN 12 mg/dl (6-23) 02/03/24 21:08 Creatinine 0.88 mg/dl (0.6-1.2) 02/03/24 21:08 Est Cr Clr Drug Dosing 66.0 ml/min 02/03/24 21:08 Est GFR ( Amer) 84.5 ml/min 02/03/24 21:08 Est GFR (Non-Af Amer) 72.9 ml/min 02/03/24 21:08 BUN/Creatinine Ratio 13.6 (10-20) 02/03/24 21:08 Glucose 126 mg/dl (70-99(Fasting)) H 02/03/24 21:08 Lactate 1.8 mmol/L (0.4-2.0) 02/03/24 23:06 Calcium 10.1 mg/dl (8.6-10.3) 02/03/24 21:08 Total Bilirubin 1.1 mg/dl (0.2-1.0) H 02/03/24 21:08 AST 17 U/L (13-39) 02/03/24 21:08 ALT 21 U/L (7-52) 02/03/24 21:08 Alkaline Phosphatase 115 U/L (34-104) H 02/03/24 21:08 Total Protein 7.8 gm/dl (6.0-8.3) 02/03/24 21:08 Albumin 4.6 gm/dl (3.4-5.0) 02/03/24 21:08 Globulin 3.2 gm/dl (2.5-4.0) 02/03/24 21:08 Albumin/Globulin Ratio 1.4 (0.9-2) 02/03/24 21:08 Urine Color Yellow 02/03/24 21:08 Urine Appearance Turbid (Clear) A 02/03/24 21:08 Urine pH 5.5 (4.5-7.5) 02/03/24 21:08 Ur Specific [place] 1.020 (1.000-1.030) 02/03/24 21:08 Urine Protein Trace (Negative) H 02/03/24 21:08 Urine Glucose (UA) Negative (Negative) 02/03/24 21:08 Urine Ketones Negative (Negative) 02/03/24 21:08 Urine Blood 3+ (Negative) H 02/03/24 21:08 Urine Nitrite Positive (Negative) A 02/03/24 21:08 Urine Bilirubin Negative (Negative) 02/03/24 21:08 Urine Urobilinogen Negative (Negative) 02/03/24 21:08 Ur Leukocyte Esterase Trace (Negative) H 02/03/24 21:08 Urine WBC (Auto) 21-50 /hpf (0-5) H 02/03/24 21:08 Urine RBC (Auto) 11-20 /hpf (0-2) H 02/03/24 21:08 U Hyaline Cast (Auto) 11-20 /lpf (0-2) H 02/03/24 21:08 U Epithel Cells (Auto) 11-20 /hpf (0-2) H 02/03/24 21:08 Urine Bacteria (Auto) 4+ (None Seen) H 02/03/24 21:08 Adenovirus (PCR) Not Detected (NotDetected) 02/03/24 21:08 B. pertussis DNA (PCR) Not Detected (NotDetected) 02/03/24 21:08 B.parapertussis DNA PCR Not Detected (NotDetected) 02/03/24 21:08 C. pneumoniae DNA (PCR) Not Detected (NotDetected) 02/03/24 21:08 Coronavirus OC43 (PCR) Not Detected (NotDetected) 02/03/24 21:08 Coronavirus HKU1 (PCR) Not Detected (NotDetected) 02/03/24 21:08 Coronavirus 229E (PCR) Not Detected (NotDetected) 02/03/24 21:08 SARS-CoV-2 (PCR) Not Detected (NotDetected) 02/03/24 21:08 Coronavirus NL63 (PCR) Not Detected (NotDetected) 02/03/24 21:08 Human Metapneumovir PCR Not Detected (NotDetected) 02/03/24 21:08 Influenza Type A (PCR) Not Detected (NotDetected) 02/03/24 21:08 Influenza Type B (PCR) Not Detected (NotDetected) 02/03/24 21:08 M. pneumoniae (PCR) Not Detected (NotDetected) 02/03/24 21:08 Parainfluenza 1 (PCR) Not Detected (NotDetected) 02/03/24 21:08 Parainfluenza 2 (PCR) Not Detected (NotDetected) 02/03/24 21:08 Parainfluenza 3 (PCR) Not Detected (NotDetected) 02/03/24 21:08 Parainfluenza 4 (PCR) Not Detected (NotDetected) 02/03/24 21:08 RSV (PCR) Not Detected (NotDetected) 02/03/24 21:08 Entero/Rhino (PCR) Not Detected (NotDetected) 02/03/24 21:08 Impressions Abdomen/Pelvis CT 02/03/24 22:48 Exam(s): CT ABDOMEN + PELVIS With Contrast IV Amt: 93 ML OPTIRAY 320 EXAM: CT Abdomen and Pelvis With Intravenous Contrast CLINICAL HISTORY: Reason for exam: abd pain, v/d. TECHNIQUE: Axial computed tomography images of the abdomen and pelvis with intravenous contrast. CTDI is 19.94 mGy and DLP is 1000.3 mGy-cm. Automated exposure control was utilized for the study. A dose lowering technique was utilized adhering to the principles of ALARA. CONTRAST: Patient received 93 ML OPTIRAY 320 of IV contrast COMPARISON: August 13, 2017 FINDINGS: Lung bases: Unremarkable. No mass. No consolidation. ABDOMEN: Liver: Unremarkable. No mass. Gallbladder and bile ducts: Unremarkable. No calcified stones. No ductal dilation. Pancreas: Unremarkable. No mass. No ductal dilation. Spleen: Unremarkable. No splenomegaly. Adrenals: Unremarkable. No mass. Kidneys and ureters: Unremarkable. No solid mass. No hydronephrosis. Stomach and bowel: See below. PELVIS: Appendix: The appendix is upper normal in diameter but noninflamed. Bowel loops are nondilated. There is diffuse wall thickening throughout the transverse and left colon consistent with colitis. No pneumoperitoneum, free fluid, or abscess is seen. Bladder: Unremarkable. No mass. Reproductive: There is a 7.4 cm slightly complex cystic structure in the left adnexa, presumably ovarian. ABDOMEN and PELVIS: Intraperitoneal space: See above. Bones/joints: Mild multilevel degenerative changes throughout the spine. No acute fracture or subluxation is seen. Soft tissues: Unremarkable. Vasculature: Unremarkable. No abdominal aortic aneurysm. Lymph nodes: Unremarkable. No enlarged lymph nodes. IMPRESSION: 1. The appendix is upper normal in diameter but noninflamed. Bowel loops are nondilated. There is diffuse wall thickening throughout the transverse and left colon consistent with colitis. No pneumoperitoneum, free fluid, or abscess is seen. 2. There is a 7.4 cm slightly complex cystic structure in the left adnexa, presumably ovarian. Consider ultrasound for further characterization and follow-up purposes. Electronically signed by: Perico Bryant MD 02/04/24 01:01 AM ECG Additional Comments: ECG. Sinus tachycardia 134. ST and T wave abnormalities. Code Status & VTE Plan VTE Prophylaxis Plan VTE Prophylaxis will be ordered: Yes
[2024-02-04] MEDS: D5W AND 1/2NSS 1,000 ML IV SCH (08:31)
[2024-02-04] MEDS: metroNIDAZOLE 500 MG/100 ML BAG IV SCH (08:31)
[2024-02-04] MEDS: ENOXAPARIN INJ 40 MG/0.4 ML SYR SQ SCH (08:31)
[2024-02-04] MEDS: ACETAMINOPHEN 1,000 MG/100 ML VIAL IV PRN (08:33)
[2024-02-04] MEDS: CEFEPIME 2,000 MG in SYRINGE 0 ML IV SCH (08:57)
[2024-02-04 09:28] LABS: Basophils # (auto) 0.03 K/uL (0.00-0.20); Basophils % (auto) 0.4 %; Eosinophils # (auto) 0.01 K/uL (0.00-0.50); Eosinophils % (auto) 0.1 %; Hematocrit (blood only) 40.6 % (37.0-47.0); Hemoglobin 13.5 g/dl (12.0-16.0); Immature Granulocytes # (auto) 0.04 K/uL (0.01-0.20); Immature Granulocytes % (auto) 0.5 %; Lymphocytes # (auto) 1.55 K/uL (1.20-3.40); Lymphocytes % (auto) 20.1 %; Mean Corpuscular Hemoglobin 29.4 pg (25.0-34.0); Mean Corpuscular Hgb Conc 33.3 g/dL (32.0-36.0); Mean Corpuscular Volume 88.5 fL (80.0-100.0); Mean Platelet Volume 10.5 fL (9.4-12.4); Monocytes % (auto) 9.1 %; Neutrophils # (auto) 5.39 K/uL (1.40-6.50); Neutrophils % (auto) 69.8 %; Platelet Count 167 K/uL (130-400); RDW Coefficient of Variation 13.2 % (11.5-14.5); RDW Standard Deviation 42.9 fL (36.4-46.3); Red Blood Count 4.59 M/uL (4.20-5.40); White Blood Count 7.72 K/ul (4.8-10.8)
[2024-02-04 09:32] LABS: BUN Creatinine Ratio 11.3 (10-20); Calcium 8.3 mg/dl (8.6-10.3); Creatinine Clr Calc Pharmacy 81.8 ml/min; Est GFR (African American) 109.6 ml/min; Est GFR (Non-African American) 94.6 ml/min; Magnesium 1.8 mg/dl (1.7-2.4); Phosphorus 3.5 mg/dl (2.5-4.9); Potassium 3.6 mmol/L (3.5-5.1)
--- NOTE | 2024-02-04 10:04 | Gastrointestinal Consultation ---
Date of Consultation February 04, 2024 Assessment & Plan (1) Nausea, vomiting, and diarrhea: (2) Colitis: Plan Patient is a 58 y.o. female with a history of anxiety/depression and HTN admitted with n/v/d and CT findings of colitis, now clinically improving. Suspect possibly viral etiology, less likely IBD. 1. Okay to advance diet as tolerated to soft, low fiber diet. 2. Continue supportive care. 3. Can consider outpatient colonoscopy as she has never undergone prior colorectal surveillance. Thank you for allowing us to participate in the care of this patient. If you have any questions or concerns, please do not hesitate to contact us. Supervising Physician Co-Signing Physician Notes Agree with DEVAN [place] as above Interviewed and examined patient and agree with above Abd: Soft, NT, ND, +BS Continue current therapy and supportive care History of Present Illness Reason for Consultation: n/v/d, colitis Requesting Physician: Dr. Felipe Attending Physician: Jigna Ignacio MD History of Present Illness Patient is a 58 y.o. 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 She states she was having an inability to tolerate any PO at home, including fluids. There was associated fevers/chills but no bloody or black stools. She denies any known triggers to the onset of symptoms such as diet change, new medications or NSAID use, or suspicious consumption. On arrival, she was found to have a mild leukocytosis of 11.10 and elevated H&H of 17.4/51.5 c/w dehydration. Stool biofire was negative. CT a/p demonstrated colonic wall thickening of the transverse and left colon. She was started on a clear liquid diet as well as IV abx. Since admission, she reports resolution of the n/v/d. Endorses mild bloating but no further fevers. She is tolerating clears and is interested in dietary advancement. No family history of IBD or GI malignancy. No prior colonoscopy. 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 Beliefs That Will Affect Care: None Current Living Situation: Spouse Other Information That Helps Us Care for You: No Feels Safe at Home: Yes Safety Concerns: Feels Safe At This Time Assistive Devices: None Review of Systems Review of Systems: All systems reviewed & are unremarkable except as noted in HPI & below Physical Exam Constitutional: WD/WN, vitals as above Eyes: EOM intact bilaterally Neck: normal appearance Respiratory: normal respiratory effort, lungs clear to auscultation Cardiovascular: Rate/Rhythm: regular rate and regular rhythm Heart Sounds: no gallop and no murmur Gastrointestinal (Abdomen): Inspection/Auscultation: + abdomen distended and + hyperactive bowel sounds Percussion/Palpation: abdomen soft; abdomen nontender, no guarding and abdomen not rigid Musculoskeletal: Extremities: no cyanosis no lower extremity edema Skin: no rashes, warm and dry Neurologic: moves all extremities Psychiatric: A+Ox3, euthymic affect Results & Data Vital Signs (Past 12 Hours) Vital Signs Temp Pulse Pulse Resp BP BP Pulse Ox 02/04/24 09:00 93 H 19 167/93 H 95 02/04/24 07:41 86 02/04/24 07:24 96 H 17 98 02/04/24 07:12 90 17 95 02/04/24 07:06 85 15 94 02/04/24 06:51 88 16 96 02/04/24 06:42 81 16 97 02/04/24 06:25 77 02/04/24 06:21 85 18 97 02/04/24 06:15 80 17 96 02/04/24 06:00 84 19 136/74 96 02/04/24 05:51 94 H 17 96 02/04/24 05:42 92 H 17 97 02/04/24 05:21 93 H 15 95 02/04/24 05:03 97 H 10 L 152/86 H 98 02/04/24 04:51 76 16 96 02/04/24 04:45 79 16 95 02/04/24 04:30 75 22 97 02/04/24 04:12 74 21 96 02/04/24 04:06 72 16 155/90 H 95 02/04/24 03:51 75 14 93 02/04/24 03:45 112 H 22 95 02/04/24 02:51 83 19 142/90 H 95 02/04/24 02:43 78 14 140/88 97 02/04/24 02:42 88 16 95 02/04/24 02:39 85 15 95 02/04/24 02:36 86 02/04/24 02:24 95 02/04/24 01:27 78 14 140/88 97 02/04/24 01:24 86 16 140/88 98 02/04/24 01:18 82 13 97 02/04/24 01:09 81 16 94 02/04/24 00:50 83 16 93 02/04/24 00:35 83 14 95 02/04/24 00:29 86 16 138/85 96 02/04/24 00:23 85 17 95 02/04/24 00:11 88 15 95 02/03/24 23:56 93 H 14 97 02/03/24 23:47 94 H 12 95 02/03/24 23:44 97 H 14 97 02/03/24 23:33 97 H 13 94 02/03/24 23:00 104 H 16 161/93 H 98 02/03/24 22:57 107 H 18 99 02/03/24 22:49 107 H 02/03/24 22:24 37.3 C 16 128/77 96 O2 Del Method 02/04/24 09:00 02/04/24 07:41 02/04/24 07:24 02/04/24 07:12 02/04/24 07:06 02/04/24 06:51 02/04/24 06:42 02/04/24 06:25 02/04/24 06:21 02/04/24 06:15 02/04/24 06:00 Room Air 02/04/24 05:51 02/04/24 05:42 02/04/24 05:21 02/04/24 05:03 Room Air 02/04/24 04:51 02/04/24 04:45 02/04/24 04:30 02/04/24 04:12 02/04/24 04:06 Room Air 02/04/24 03:51 02/04/24 03:45 02/04/24 02:51 Room Air 02/04/24 02:43 Room Air 02/04/24 02:42 02/04/24 02:39 02/04/24 02:36 02/04/24 02:24 02/04/24 01:27 Room Air 02/04/24 01:24 Room Air 02/04/24 01:18 02/04/24 01:09 02/04/24 00:50 02/04/24 00:35 02/04/24 00:29 Room Air 02/04/24 00:23 02/04/24 00:11 02/03/24 23:56 02/03/24 23:47 02/03/24 23:44 02/03/24 23:33 02/03/24 23:00 Room Air 02/03/24 22:57 02/03/24 22:49 02/03/24 22:24 Room Air Diagnostic Findings Laboratory Results WBC 7.72 K/ul (4.8-10.8) 02/04/24 08:51 RBC 4.59 M/uL (4.20-5.40) 02/04/24 08:51 Hgb 13.5 g/dl (12.0-16.0) D 02/04/24 08:51 Hct 40.6 % (37.0-47.0) 02/04/24 08:51 MCV 88.5 fL (80.0-100.0) 02/04/24 08:51 MCH 29.4 pg (25.0-34.0) 02/04/24 08:51 MCHC 33.3 g/dL (32.0-36.0) 02/04/24 08:51 RDW Std Deviation 42.9 fL (36.4-46.3) 02/04/24 08:51 RDW Coeff of [place] 13.2 % (11.5-14.5) 02/04/24 08:51 Plt Count 167 K/uL (130-400) 02/04/24 08:51 MPV 10.5 fL (9.4-12.4) 02/04/24 08:51 Immature Gran % (Auto) 0.5 % 02/04/24 08:51 Neut % (Auto) 69.8 % 02/04/24 08:51 Lymph % (Auto) 20.1 % 02/04/24 08:51 [place] % (Auto) 9.1 % 02/04/24 08:51 Eos % (Auto) 0.1 % 02/04/24 08:51 Baso % (Auto) 0.4 % 02/04/24 08:51 Neut # (Auto) 5.39 K/uL (1.40-6.50) 02/04/24 08:51 Lymph # (Auto) 1.55 K/uL (1.20-3.40) 02/04/24 08:51 [place] # (Auto) 0.70 K/uL (0.11-0.59) H 02/04/24 08:51 Eos # (Auto) 0.01 K/uL (0.00-0.50) 02/04/24 08:51 Baso # (Auto) 0.03 K/uL (0.00-0.20) 02/04/24 08:51 Immature Gran # (Auto) 0.04 K/uL (0.01-0.20) 02/04/24 08:51 Sodium 138 mmol/L (136-145) 02/04/24 08:51 Potassium 3.6 mmol/L (3.5-5.1) 02/04/24 08:51 Chloride 109 mmol/L (98-107) H 02/04/24 08:51 Carbon Dioxide 24 mmol/L (21-32) 02/04/24 08:51 Anion Gap 5 (3-11) 02/04/24 08:51 BUN 8 mg/dl (6-23) 02/04/24 08:51 Creatinine 0.71 mg/dl (0.6-1.2) 02/04/24 08:51 Est Cr Clr Drug Dosing 81.8 ml/min 02/04/24 08:51 Est GFR ( Amer) 109.6 ml/min 02/04/24 08:51 Est GFR (Non-Af Amer) 94.6 ml/min 02/04/24 08:51 BUN/Creatinine Ratio 11.3 (10-20) 02/04/24 08:51 Glucose 99 mg/dl (70-99(Fasting)) 02/04/24 08:51 Lactate 1.8 mmol/L (0.4-2.0) 02/03/24 23:06 Calcium 8.3 mg/dl (8.6-10.3) L 02/04/24 08:51 Phosphorus 3.5 mg/dl (2.5-4.9) 02/04/24 08:51 Magnesium 1.8 mg/dl (1.7-2.4) 02/04/24 08:51 Total Bilirubin 1.1 mg/dl (0.2-1.0) H 02/03/24 21:08 AST 17 U/L (13-39) 02/03/24 21:08 ALT 21 U/L (7-52) 02/03/24 21:08 Alkaline Phosphatase 115 U/L (34-104) H 02/03/24 21:08 Total Protein 7.8 gm/dl (6.0-8.3) 02/03/24 21:08 Albumin 4.6 gm/dl (3.4-5.0) 02/03/24 21:08 Globulin 3.2 gm/dl (2.5-4.0) 02/03/24 21:08 Albumin/Globulin Ratio 1.4 (0.9-2) 02/03/24 21:08 Urine Color Yellow 02/03/24 21:08 Urine Appearance Turbid (Clear) A 02/03/24 21:08 Urine pH 5.5 (4.5-7.5) 02/03/24 21:08 Ur Specific [place] 1.020 (1.000-1.030) 02/03/24 21:08 Urine Protein Trace (Negative) H 02/03/24 21:08 Urine Glucose (UA) Negative (Negative) 02/03/24 21:08 Urine Ketones Negative (Negative) 02/03/24 21:08 Urine Blood 3+ (Negative) H 02/03/24 21:08 Urine Nitrite Positive (Negative) A 02/03/24 21:08 Urine Bilirubin Negative (Negative) 02/03/24 21:08 Urine Urobilinogen Negative (Negative) 02/03/24 21:08 Ur Leukocyte Esterase Trace (Negative) H 02/03/24 21:08 Urine WBC (Auto) 21-50 /hpf (0-5) H 02/03/24 21:08 Urine RBC (Auto) 11-20 /hpf (0-2) H 02/03/24 21:08 U Hyaline Cast (Auto) 11-20 /lpf (0-2) H 02/03/24 21:08 U Epithel Cells (Auto) 11-20 /hpf (0-2) H 02/03/24 21:08 Urine Bacteria (Auto) 4+ (None Seen) H 02/03/24 21:08 Adenovirus (PCR) Not Detected (NotDetected) 02/03/24 21:08 B. pertussis DNA (PCR) Not Detected (NotDetected) 02/03/24 21:08 B.parapertussis DNA PCR Not Detected (NotDetected) 02/03/24 21:08 C. pneumoniae DNA (PCR) Not Detected (NotDetected) 02/03/24 21:08 Coronavirus OC43 (PCR) Not Detected (NotDetected) 02/03/24 21:08 Coronavirus HKU1 (PCR) Not Detected (NotDetected) 02/03/24 21:08 Coronavirus 229E (PCR) Not Detected (NotDetected) 02/03/24 21:08 SARS-CoV-2 (PCR) Not Detected (NotDetected) 02/03/24 21:08 Coronavirus NL63 (PCR) Not Detected (NotDetected) 02/03/24 21:08 Human Metapneumovir PCR Not Detected (NotDetected) 02/03/24 21:08 Influenza Type A (PCR) Not Detected (NotDetected) 02/03/24 21:08 Influenza Type B (PCR) Not Detected (NotDetected) 02/03/24 21:08 M. pneumoniae (PCR) Not Detected (NotDetected) 02/03/24 21:08 Parainfluenza 1 (PCR) Not Detected (NotDetected) 02/03/24 21:08 Parainfluenza 2 (PCR) Not Detected (NotDetected) 02/03/24 21:08 Parainfluenza 3 (PCR) Not Detected (NotDetected) 02/03/24 21:08 Parainfluenza 4 (PCR) Not Detected (NotDetected) 02/03/24 21:08 RSV (PCR) Not Detected (NotDetected) 02/03/24 21:08 Entero/Rhino (PCR) Not Detected (NotDetected) 02/03/24 21:08 Impressions Abdomen/Pelvis CT 02/03/24 22:48 Exam(s): CT ABDOMEN + PELVIS With Contrast IV Amt: 93 ML OPTIRAY 320 EXAM: CT Abdomen and Pelvis With Intravenous Contrast CLINICAL HISTORY: Reason for exam: abd pain, v/d. TECHNIQUE: Axial computed tomography images of the abdomen and pelvis with intravenous contrast. CTDI is 19.94 mGy and DLP is 1000.3 mGy-cm. Automated exposure control was utilized for the study. A dose lowering technique was utilized adhering to the principles of ALARA. CONTRAST: Patient received 93 ML OPTIRAY 320 of IV contrast COMPARISON: August 13, 2017 FINDINGS: Lung bases: Unremarkable. No mass. No consolidation. ABDOMEN: Liver: Unremarkable. No mass. Gallbladder and bile ducts: Unremarkable. No calcified stones. No ductal dilation. Pancreas: Unremarkable. No mass. No ductal dilation. Spleen: Unremarkable. No splenomegaly. Adrenals: Unremarkable. No mass. Kidneys and ureters: Unremarkable. No solid mass. No hydronephrosis. Stomach and bowel: See below. PELVIS: Appendix: The appendix is upper normal in diameter but noninflamed. Bowel loops are nondilated. There is diffuse wall thickening throughout the transverse and left colon consistent with colitis. No pneumoperitoneum, free fluid, or abscess is seen. Bladder: Unremarkable. No mass. Reproductive: There is a 7.4 cm slightly complex cystic structure in the left adnexa, presumably ovarian. ABDOMEN and PELVIS: Intraperitoneal space: See above. Bones/joints: Mild multilevel degenerative changes throughout the spine. No acute fracture or subluxation is seen. Soft tissues: Unremarkable. Vasculature: Unremarkable. No abdominal aortic aneurysm. Lymph nodes: Unremarkable. No enlarged lymph nodes. IMPRESSION: 1. The appendix is upper normal in diameter but noninflamed. Bowel loops are nondilated. There is diffuse wall thickening throughout the transverse and left colon consistent with colitis. No pneumoperitoneum, free fluid, or abscess is seen. 2. There is a 7.4 cm slightly complex cystic structure in the left adnexa, presumably ovarian. Consider ultrasound for further characterization and follow-up purposes. Electronically signed by: Perico Bryant MD 02/04/24 01:01 AM PG Care Time/CCT Total # of Minutes Spent Total Time Spent with Patient: Total time spent is greater than 50% in coordination of care (as documented) at patient's floor/unit and/or counseling patient: Coding Level of Care Code 83435 INT INP/OBS CARE 3/75MIN Diagnoses Nausea, vomiting, and diarrhea R11.2; R19.7 Colitis K52.9
[2024-02-04] MEDS: CIPROFLOXACIN / D5W 400 MG/200 ML BAG IV SCH (10:21)
[2024-02-04] MEDS: ONDANSETRON INJ 2 MG/ML 2 ML VIAL IV PRN (10:47)
--- NOTE | 2024-02-04 11:59 | Communication Note ---
Date of Service: February 04, 2024 Patient seen and examined Reports nausea, abd pain No diarrhea since overnight CT showed transverse and left colitis.Also noted 7.4cm slightly complex cystic structure in left adnexa, likely ovarian UA suggestive of possible UTI Cefepime changed to Ciprofloxacin Continue flagyl Get C diff and stool PCR Other plans as detailed in H/P
--- NOTE | 2024-02-04 12:29 | Electrocardiogram Report ---
Test Reason : Blood Pressure : / mmHG Vent. Rate : 134 BPM Atrial Rate : 134 BPM P-R Int : 150 ms QRS Dur : 086 ms QT Int : 288 ms P-R-T Axes : 068 107 019 degrees QTc Int : 430 ms Sinus tachycardia Rightward axis Abnormal ECG When compared with ECG of 05-JUL-2016 08:16, Vent. rate has increased BY 55 BPM QRS axis Shifted right Confirmed by Fady Luis ([id number]) on 02/04/2024 12:29:23 PM Referred By: REFERRED SELF Confirmed By:Lane Luis
[2024-02-04] MEDS: PROMETHAZINE HCL 12.5 MG in SODIUM CHLORIDE 0.9% 50 ML IV STA (15:30)
[2024-02-04] MEDS: HYDROmorphone INJ 0.5 MG/0.5 ML SYR IV PRN (15:30)
[2024-02-04] MEDS: PROMETHAZINE 12.5 MG/50.5 ML NSS IV ONE (15:30)
[2024-02-04 17:01] LABS: Adenovirus F 40/41 PCR Not Detected (NotDetected); Astrovirus PCR Not Detected (NotDetected); Campylobacter PCR Not Detected (NotDetected); Cryptosporidium PCR Not Detected (NotDetected); Cyclospora cayetanensis PCR Not Detected (NotDetected); Entamoeba histolytica PCR Not Detected (NotDetected); Enteroaggregative E.coli(EAEC) Not Detected (NotDetected); Enterotoxigenic E.coli (ETEC) Not Detected (NotDetected); Giardia lamblia PCR Not Detected (NotDetected); Norovirus GI/GII PCR Not Detected (NotDetected); Plesiomonas shigelloides PCR Not Detected (NotDetected); Rotavirus A PCR Not Detected (NotDetected); Salmonella PCR Not Detected (NotDetected); Sapovirus PCR Not Detected (NotDetected); Shiga-like Toxin E.coli (STEC) Not Detected (NotDetected); Shigella/Enteroinvasive E.coli Not Detected (NotDetected); Vibrio cholerae PCR Not Detected (NotDetected); Vibrio species PCR Not Detected (NotDetected); Yersinia enterocolitica PCR Not Detected (NotDetected)
[2024-02-04 17:31] LABS: Enteropathogenic E.coli (EPEC) DETECTED (NotDetected)
[2024-02-05 08:07] LABS: Hematocrit (blood only) 40.9 % (37.0-47.0); Hemoglobin 13.6 g/dl (12.0-16.0); Mean Corpuscular Hemoglobin 29.8 pg (25.0-34.0); Mean Corpuscular Hgb Conc 33.3 g/dL (32.0-36.0); Mean Corpuscular Volume 89.5 fL (80.0-100.0); Mean Platelet Volume 10.9 fL (9.4-12.4); Platelet Count 166 K/uL (130-400); RDW Coefficient of Variation 13.2 % (11.5-14.5); RDW Standard Deviation 43.7 fL (36.4-46.3); Red Blood Count 4.57 M/uL (4.20-5.40); White Blood Count 7.14 K/ul (4.8-10.8)
[2024-02-05 08:10] LABS: BUN Creatinine Ratio 7.1 (10-20); Calcium 8.6 mg/dl (8.6-10.3); Est GFR (African American) 111.5 ml/min; Est GFR (Non-African American) 96.2 ml/min; Magnesium 1.9 mg/dl (1.7-2.4); Phosphorus 3.4 mg/dl (2.5-4.9); Potassium 3.5 mmol/L (3.5-5.1)
--- NOTE | 2024-02-05 09:35 | Gastroenterology Progress Note ---
Date of Service February 05, 2024 Assessment & Plan (1) Nausea, vomiting, and diarrhea: (2) Colitis: (3) E coli infection: Plan Patient is a 58 y.o. female with a history of anxiety/depression and HTN admitted with n/v/d and CT findings of colitis which is related to EPEC, now cli nically improving. 1. Okay to advance diet as tolerated. 2. Continue Ciprofloxacin for a total of 5 days. 3. Stable for discharge from GI perspective if cleared by primary team. 4. Can consider outpatient colonoscopy once acute issues are resolved as she has never undergone prior colorectal surveillance. Admission and Anticipated Discharge Date Admission Date: February 04, 2024 Subjective Patient reports gradual symptom improvement. She denies any bowel movements overnight. Abdominal cramping is lessening. She continues with bloating but no n/v. Her appetite remains low but she is tolerating her diet. Stool culture finalized positive with EPEC. No further f/c. She verbalizes desire to go home today. Review of Systems Constitutional: as per Subjective / HPI and + fatigue Respiratory: no problem reported Cardiovascular: no problem reported Gastrointestinal: as per Subjective / HPI Physical Exam Constitutional: WD/WN, vitals as above Respiratory: normal respiratory effort, lungs clear to auscultation Cardiovascular: RRR, no murmur, no edema Gastrointestinal (Abdomen): Inspection/Auscultation: + abdomen distended and + hyperactive bowel sounds Percussion/Palpation: abdomen soft; abdomen nontender, no guarding and abdomen not rigid Psychiatric: A+Ox3, euthymic affect Results & Data Results & Data Vital Signs (Past 12 Hours) Vital Signs Temp Pulse Resp BP Pulse Ox O2 Del Method 02/05/24 08:09 36.9 C 75 16 146/76 H 96 Room Air 02/04/24 21:34 37.1 C 76 16 123/72 98 Room Air Diagnostic Findings Abnormal lab results 02/04/24 02/04/24 02/05/24 Range/Units 08:51 15:23 07:11 Chloride 109 H 111 H (98-107) mmol/L BUN 5 L (6-23) mg/dl BUN/Creatinine Ratio 7.1 L (10-20) Glucose 112 H (70-99(Fasting)) mg/dl Calcium 8.3 L (8.6-10.3) mg/dl Stool EPEC (PCR) DETECTED A* (NotDetected) PG Care Time/CCT Total # of Minutes Spent Total Time Spent with Patient: Total time spent is greater than 50% in coordination of care (as documented) at patient's floor/unit and/or counseling patient: Coding Level of Care Code 31801 SUB INP/OBS CARE 3/50MIN Diagnoses Nausea, vomiting, and diarrhea R11.2; R19.7 Colitis K52.9 E coli infection A49.8
--- NOTE | 2024-02-05 11:40 | Hospitalist Progress Note ---
Date of Service February 05, 2024 Assessment & Plan (1) Colitis: Plan: Per previous hospitalist notes with addendum: 58-year-old female with past medical history significant for depression with anxiety presents with nausea, vomiting, diarrhea and abdominal pain since last Saturday. Patient states she had multiple episodes of diarrhea. Has nausea and vomitings whenever she is eating.. Denies any bloody stools or black stools. Stools are watery. No foul-smelling stools. Has abdominal cramps. Also having fevers. Whole body aches. Feeling weak. Denies blurred vision Or double vision. No runny nose or sore throat. No cough. No chest pain or shortness of breath. Hemodynamics are okay. No recent use of antibiotics. CT scan showing colitis. Colitis nausea, vomiting and diarrhea Stool PCR panel: Positive for EPEC Stool C. difficile: Negative CT abdomen pelvis showing diffuse wall thickening throughout the transverse and left colon consistent with colitis. Patient improving IV Cipro and Flagyl GI service consulted, recommendations: 1. Okay to advance diet as tolerated. 2. Continue Ciprofloxacin for a total of 5 days. 3. Stable for discharge from GI perspective if cleared by primary team. 4. Can consider outpatient colonoscopy once acute issues are resolved as she has never undergone prior colorectal surveillance. UTI Urine culture: Gram-negative bacilli Follow-up final result of urine culture For now, will be on ciprofloxacin 500 mg twice daily x 5 days for colitis Left adnexal cyst "There is a 7.4 cm slightly complex cystic structure in the left adnexa, presumably ovarian. Consider ultrasound for further characterization and follow-up purposes." Seen on CT scan of abdomen and pelvis Please order pelvic ultrasound, further evaluation management as an outpatient Discharge to home PCP follow-up in 1 week Admission and Anticipated Discharge Date Admission Date: February 04, 2024 Subjective Follow-up for colitis, etc. Seen sitting up in bed, comfortable, not in distress States she feels better overall since admission Only had 1 loose stools this morning, no blood noted Still having some mild abdominal discomfort but improving No fevers or chills No other new symptoms States she is ready for discharge today Review of Systems Review of Systems: all noted and negative except for above Physical Exam Physical Exam: General- oriented x 3, not in distress, speaks in sentences with no effort or accessory muscle use Eyes- anicteric Neck- no JVD Lungs- clear breath sounds bilaterally, no rales/wheezes Heart- normal rate, regular rhythm; no murmurs Abdomen- Hyperactive bowel sounds, nondistended, soft, nontender Extremities- no pretibial edema, no calf tenderness Neuro- alert, oriented x 3; no gross focal neurologic deficits Skin- warm & dry Results & Data Results & Data Vital Signs (Past 12 Hours) Vital Signs Temp Pulse Resp BP Pulse Ox O2 Del Method 02/05/24 08:09 36.9 C 75 16 146/76 H 96 Room Air all noted and reviewed including below
--- NOTE | 2024-02-05 11:52 | Discharge Summary ---
Discharge Summary Date of Service February 05, 2024 Principal Dx & Hospital Course #1 = Principal Diagnosis (1) Colitis: Per previous hospitalist notes with addendum: 58-year-old female with past medical history significant for depression with anxiety presents with nausea, vomiting, diarrhea and abdominal pain since last Saturday. Patient states she had multiple episodes of diarrhea. Has nausea and vomitings whenever she is eating.. Denies any bloody stools or black stools. Stools are watery. No foul-smelling stools. Has abdominal cramps. Also having fevers. Whole body aches. Feeling weak. Denies blurred vision Or double vision. No runny nose or sore throat. No cough. No chest pain or shortness of breath. Hemodynamics are okay. No recent use of antibiotics. CT scan showing colitis. Colitis nausea, vomiting and diarrhea Stool PCR panel: Positive for EPEC Stool C. difficile: Negative CT abdomen pelvis showing diffuse wall thickening throughout the transverse and left colon consistent with colitis. Patient improving IV Cipro and Flagyl GI service consulted, recommendations: 1. Okay to advance diet as tolerated. 2. Continue Ciprofloxacin for a total of 5 days. 3. Stable for discharge from GI perspective if cleared by primary team. 4. Can consider outpatient colonoscopy once acute issues are resolved as she has never undergone prior colorectal surveillance. UTI Urine culture: Gram-negative bacilli Follow-up final result of urine culture For now, will be on ciprofloxacin 500 mg twice daily x 5 days for colitis Left adnexal cyst "There is a 7.4 cm slightly complex cystic structure in the left adnexa, presumably ovarian. Consider ultrasound for further characterization and follow-up purposes." Seen on CT scan of abdomen and pelvis Please order pelvic ultrasound, further evaluation management as an outpatient Discharge to home PCP follow-up in 1 week Notes For Next Care Provider Please arrange for pelvic ultrasound to assess for complex left adnexal cyst, 7.4 cm Also please arrange for outpatient colonoscopy per GI recommendations Medication Changes From Visit Ciprofloxacin 500 mg p.o. twice daily x 5 days Admission HPI Per Admitting Provider 58-year-old female with past medical history significant for depression with anxiety presents with nausea, vomiting, diarrhea and abdominal pain since last Saturday. Patient states she had multiple episodes of diarrhea. Has nausea and vomitings whenever she is eating.. Denies any bloody stools or black stools. Stools are watery. No foul-smelling stools. Has abdominal cramps. Also having fevers. Whole body aches. Feeling weak. Denies blurred vision Or double vision. No runny nose or sore throat. No cough. No chest pain or shortness of breath. Hemodynamics are okay. No recent use of antibiotics. Past medical history. As mentioned above past surgical history. . Social history. . No smoking. Alcohol occasional. No drug use. Family history. Maternal grandmother had breast cancer later in life. Father had cancer. Discharge Exam General- oriented x 3, not in distress, speaks in sentences with no effort or accessory muscle use Eyes- anicteric Neck- no JVD Lungs- clear breath sounds bilaterally, no rales/wheezes Heart- normal rate, regular rhythm; no murmurs Abdomen- Hyperactive bowel sounds, nondistended, soft, nontender Extremities- no pretibial edema, no calf tenderness Neuro- alert, oriented x 3; no gross focal neurologic deficits Skin- warm & dry Updated Medication List Medication Instructions Recorded Confirmed Type ciprofloxacin HCl 500 mg tablet 500 mg PO BID 5 days #10 tabs 02/05/24 Rx Hospital Stay Data Consultations 02/04/24 08:00 Consult Gastroenterology Routine Diagnostic Imagining Performed 02/03/24 22:48 CT Abd and Pelvis [CT abd pelvis IV con only] Stat Exam(s): CT ABDOMEN + PELVIS With Contrast IV Amt: 93 ML OPTIRAY 320 EXAM: CT Abdomen and Pelvis With Intravenous Contrast CLINICAL HISTORY: Reason for exam: abd pain, v/d. TECHNIQUE: Axial computed tomography images of the abdomen and pelvis with intravenous contrast. CTDI is 19.94 mGy and DLP is 1000.3 mGy-cm. Automated exposure control was utilized for the study. A dose lowering technique was utilized adhering to the principles of ALARA. CONTRAST: Patient received 93 ML OPTIRAY 320 of IV contrast COMPARISON: August 13, 2017 FINDINGS: Lung bases: Unremarkable. No mass. No consolidation. ABDOMEN: Liver: Unremarkable. No mass. Gallbladder and bile ducts: Unremarkable. No calcified stones. No ductal dilation. Pancreas: Unremarkable. No mass. No ductal dilation. Spleen: Unremarkable. No splenomegaly. Adrenals: Unremarkable. No mass. Kidneys and ureters: Unremarkable. No solid mass. No hydronephrosis. Stomach and bowel: See below. PELVIS: Appendix: The appendix is upper normal in diameter but noninflamed. Bowel loops are nondilated. There is diffuse wall thickening throughout the transverse and left colon consistent with colitis. No pneumoperitoneum, free fluid, or abscess is seen. Bladder: Unremarkable. No mass. Reproductive: There is a 7.4 cm slightly complex cystic structure in the left adnexa, presumably ovarian. ABDOMEN and PELVIS: Intraperitoneal space: See above. Bones/joints: Mild multilevel degenerative changes throughout the spine. No acute fracture or subluxation is seen. Soft tissues: Unremarkable. Vasculature: Unremarkable. No abdominal aortic aneurysm. Lymph nodes: Unremarkable. No enlarged lymph nodes. IMPRESSION: 1. The appendix is upper normal in diameter but noninflamed. Bowel loops are nondilated. There is diffuse wall thickening throughout the transverse and left colon consistent with colitis. No pneumoperitoneum, free fluid, or abscess is seen. 2. There is a 7.4 cm slightly complex cystic structure in the left adnexa, presumably ovarian. Consider ultrasound for further characterization and follow-up purposes. Electronically signed by: Perico Bryant MD 02/04/24 01:01 AM Dictated: 02/04/24100 Transcribed: 02/04/24100 Pending Results Patient Have Any Pending Studies at Discharge: Yes Discharge Instructions Given to Patient (Per Discharging Provider) PLEASE REFER TO YOUR NEW MEDICATION LIST AND FOLLOW INSTRUCTIONS CAREFULLY. YOUR NEW MEDICATIONS INCLUDE: Ciprofloxacin-antibiotic for colitis Drink plenty of fluids. Your urine culture is still pending. We will be calling you for alternative antibiotic if the organism causing the UTI is resistant to ciprofloxacin. You were also found to have a 7.4 cm complex cyst on the left adnexa. This seems to be ovarian in origin. You need to have a pelvic ultrasound to further evaluate the cyst. Please have your primary care physician order the pelvic ultrasound. PLEASE CALL YOUR PRIMARY CARE PHYSICIAN OR RETURN TO THE ER IF WITH WORSENING OF SYMPTOMS, INCLUDING Persistent diarrhea, blood in the stools, abdominal pain, nausea vomiting, fevers or chills, weakness, poor oral intake, etc. FOLLOW UP WITH PRIMARY CARE PHYSICIAN In 1 week. Total Time Total Time Spent Total Time Spent (In Minutes): 40 minutes
== END 2024-02-05 12:35 | disposition home or self-care (01) | DRG 372 ==
LOC: ED 20:46 → EDINP 02-04 05:23 → INTOOBSV 02-04 05:23 → SUATTDRO 02-04 05:23 → EDINP 02-04 08:00 → 3N 02-04 16:09